=== PATIENT | female | born 1955 | race Caucasian/White ===

== ENCOUNTER 2018-07-28 15:27 | Emergency (ER) | payer OTHER ==
[~2018-07-28] VITALS: Ht 177.8 cm; Wt 86.2 kg
[2018-07-28] MEDS ORDERED: CARDIZEM30 MG (16:15)
== END 2018-07-28 17:26 | disposition home or self-care (01) ==
LOC: ER 15:27 → EDBD 15:45 → ER 15:45
DX: S52.121A Displaced fracture of head of right radius, initial encounter for closed fracture (principal); W18.09XA Striking against other object with subsequent fall, initial encounter; Y93.89 Activity, other specified; Y92.017 Garden or yard in single-family (private) house as the place of occurrence of the external cause; Y99.8 Other external cause status